=== PATIENT | male | born 1955 | race Caucasian/White ===

== ENCOUNTER → 2016-10-14 | Outpatient (CLI) | payer OTHER ==
[~2016-10-14] MED LIST: ASPIR 8181 MG PO; DICLOFENAC POTA50 MG PO; GLUCOPHAGE 500500 MG PO; HYDROCHLOROTHIA25 MG PO; LOPRESSOR 25 MG25 MG PO; LOVENOX SY40 MG/0.4 SQ; PERCOCET 5/325 T1 EA PO; PRAVACHOL40 MG PO
[2016-10-14 13:26] LABS: BUN/CREATININE RATIO 30 (0-10)
== END ==
PROVIDERS: Nurse Practitioner
DX: N17.9 Acute kidney failure, unspecified (principal); R79.89 Other specified abnormal findings of blood chemistry
CPT/HCPCS: 36415; 80048

== ENCOUNTER 2020-11-18 15:39 | Emergency (ER) | payer MEDICARE ==
[2020-11-18 17:13] LABS: HEMOGLOBIN 12.8 gm/dl (14.0-17.5); RED BLOOD COUNT 4.26 M/UL (4.20-5.50); WHITE BLOOD COUNT 3.4 K/UL (4.5-11.0)
[2020-11-18 17:34] LABS: BUN/CREATININE RATIO 25 (0-10)
[2020-11-18 20:24] LABS: BUN/CREATININE RATIO 25 (0-10)
[2020-11-18] MEDS ORDERED: VENTOLIN HFA 66.7 GM INH (20:59)
== END 2020-11-18 21:37 | disposition home or self-care (01) ==
LOC: ER1 15:39
PROVIDERS: Physician Assistant
DX: Z23 Encounter for immunization (principal); U07.1 COVID-19; J12.82 Pneumonia due to coronavirus disease 2019; E86.0 Dehydration; E87.6 Hypokalemia; E87.1 Hypo-osmolality and hyponatremia; E11.9 Type 2 diabetes mellitus without complications; I10 Essential (primary) hypertension; Z79.84 Long term (current) use of oral hypoglycemic drugs; Z79.899 Other long term (current) drug therapy
CPT/HCPCS: 0240U; 71045; 80048; 80053; 83605; 85025; 87040; 96374; 99285; J2405; J7030; M0239